=== PATIENT | female | born 1940 | race Caucasian/White ===

== ENCOUNTER 2017-01-23 19:26 | Inpatient (IN) | payer OTHER ==
--- NOTE | 2017-01-23 19:50 | CPEKG ---
Heart Rate: 59 RR Interval: 1017 P-R Interval: 168 QRSD Interval: 96 QT Interval: 464 QTC Interval: 460 P [place]: 66 QRS [place]: 34 T Wave [place]: 152 EKG Severity - ABNORMAL ECG - EKG Impression: SINUS RHYTHM EKG Impression: MULTIPLE VENTRICULAR PREMATURE COMPLEXES EKG Impression: REPOL ABNRM SUGGESTS ISCHEMIA, ANT-LAT LEADS Electronically Signed By: Vicente Chen 23-Jan-2017 22:41:07
[2017-01-23] MEDS ORDERED: ASPIRIN 81 MG CHEWABLE TAB PO ONE (20:05)
[2017-01-23] MEDS ORDERED: ASPIRIN 81 MG CHEWABLE TAB ONE (20:05)
--- NOTE | 2017-01-23 20:08 | EDPHY ---
H & P Stated Complaint: sent by PCP for elevated troponin and abnormal EKG, pt denies CP Time Seen by Provider: 01/23/17 19:46 HPI/ROS: CHIEF COMPLAINT: Exertional chest pain HISTORY OF PRESENT ILLNESS: The patient is referred to the ED for evaluation of an abnormal EKG, a reportedly elevated troponin and a history of intermittent chest pain for the past week. The patient reports her last episode of chest pain was 2-3 days ago. She reports she has had 2-3 episodes over the past week. It is typically precipitated by exertion and self-limited. The patient has no prior history of coronary artery disease. She reportedly did undergo an angiogram in 2001 for symptoms of fatigue which by her report was unremarkable. The patient denies active chest pain, asymmetric calf pain or swelling, pleuritic chest pain or additional complaints. The patient does have a family history significant for coronary artery disease. REVIEW OF SYSTEMS: A comprehensive 10 point review of systems is otherwise negative aside from elements mentioned in the history of present illness. Source: Patient Exam Limitations: No limitations - Personal History Current Tetanus/Diphtheria Vaccine: Yes Current Tetanus Diphtheria and Acellular Pertussis (TDAP): Yes Tetanus Vaccine Date: - Medical/Surgical History Hx Asthma: No Hx Chronic Respiratory Disease: No Hx Diabetes: No Hx Cardiac Disease: No Hx Renal Disease: No Hx Cirrhosis: No Hx Alcoholism: No Hx HIV/AIDS: No Hx Splenectomy or Spleen Trauma: No Other PMH: BREAST CA. COLON RESECTION. TONSILECTOMY - Social History Smoking Status: Former smoker - Physical Exam Exam: General Appearance: Alert, no distress Eyes: Pupils equal and round no pallor or injection ENT, Mouth: Mucous membranes moist Respiratory: There are no retractions, lungs are clear to auscultation Cardiovascular: Irregular rate consistent with her PVCs Gastrointestinal: Abdomen is soft and nontender, no masses, bowel sounds normal Neurological: A&O, normal motor function, normal sensory exam, normal cranial nerves Skin: Warm and dry, no rashes Musculoskeletal: Neck is supple nontender Extremities: symmetrical, full range of motion Constitutional: Initial Vital Signs Temperature (C) 36.8 C 01/23/17 19:30 Heart Rate 79 01/23/17 19:30 Respiratory Rate 16 01/23/17 19:30 Blood Pressure 129/79 H 01/23/17 19:30 O2 Sat (%) 93 01/23/17 19:30 O2 Delivery Mode Room Air Allergies/Adverse Reactions: No Known Allergies Allergy (Verified 02/21/15 16:03) Home Medications: Medication Instructions Recorded Herbals/Supplements -Info Only 1 ea PO DAILY 01/23/17 Medical Decision Making - Diagnostics EKG Interpretation: EKG: Complete interpretation has been separately recorded in the [facility] archive. Summary impression: Sinus rhythm, ST segment depression and T-wave inversions noted throughout the inferior and lateral leads Imaging Results: Imaging Impressions Chest X-Ray 01/23/17 20:05 Impression: Clear lungs. No acute process. ED Course/Re-evaluation: I reviewed the patient's outpatient laboratory studies including a troponin which was elevated at 0.114. The patient is noted to have some ST segment depression and T-wave inversions noted on her EKG. I have no prior EKG to compare to. The patient was given a 324 mg dose of aspirin. I did consult with Dr. Neo Arteaga who is on-call for Cardiology who will make arrangements for the patient to be seen tomorrow. The patient will be admitted to the hospitalist service for observation and serial enzymes this evening. Differential Diagnosis: Differential diagnosis considered includes acute coronary syndrome, myocardial infarction, pericarditis, pneumothorax - Data Points Laboratory Results: Laboratory Results 01/23/17 20:06 01/23/17 20:09 01/23/17 01/23/17 20:09 20:06 WBC 8.62 10^3/uL 10^3/uL (3.80-9.50) RBC 4.62 10^6/uL 10^6/uL (4.18-5.33) Hgb 14.8 g/dL g/dL (12.6-16.3) Hct 44.5 % % (38.0-47.0) MCV 96.3 fL fL (81.5-99.8) MCH 32.0 pg pg (27.9-34.1) MCHC 33.3 g/dL g/dL (32.4-36.7) RDW 12.9 % % (11.5-15.2) Plt Count 228 10^3/uL 10^3/uL (150-400) MPV 10.5 fL fL (8.7-11.7) Neut % (Auto) 37.8 % L % (39.3-74.2) Lymph % (Auto) 47.8 % H % (15.0-45.0) [place] % (Auto) 8.9 % % (4.5-13.0) Eos % (Auto) 4.6 % % (0.6-7.6) Baso % (Auto) 0.7 % % (0.3-1.7) Nucleat RBC Rel Count 0.0 % % (0.0-0.2) Absolute Neuts (auto) 3.25 10^3/uL 10^3/uL (1.70-6.50) Absolute Lymphs (auto) 4.12 10^3/uL H 10^3/uL (1.00-3.00) Absolute Monos (auto) 0.77 10^3/uL 10^3/uL (0.30-0.80) Absolute Eos (auto) 0.40 10^3/uL 10^3/uL (0.03-0.40) Absolute Basos (auto) 0.06 10^3/uL 10^3/uL (0.02-0.10) Absolute Nucleated RBC 0.00 10^3/uL 10^3/uL (0-0.01) Immature Gran % 0.2 % % (0.0-1.1) Immature Gran # 0.02 10^3/uL 10^3/uL (0.00-0.10) Sodium 141 mEq/L mEq/L (134-144) Potassium 3.8 mEq/L mEq/L (3.5-5.2) Chloride 107 mEq/L mEq/L (97-110) Carbon Dioxide 24 mEq/l mEq/l (22-31) Anion Gap 10 mEq/L mEq/L (8-16) BUN 21 mg/dL mg/dL (7-23) Creatinine 0.8 mg/dL mg/dL (0.6-1.0) Estimated GFR > 60 Glucose 126 mg/dL H mg/dL (70-100) Calcium 10.0 mg/dL mg/dL (8.5-10.4) Troponin I 0.114 ng/mL H ng/mL (0-0.034) Medications Given: Discontinued Medications Aspirin (Aspirin) 324 mg PO EDNOW ONE Stop: 01/23/17 20:06 Last Admin: 01/23/17 20:21 Dose: 324 mg Departure - Departure Disposition: [facility] Inpatient Acute Clinical Impression: Chest pain, Abnormal EKG, Cardiac enzymes elevated Condition: Good
[2017-01-23 20:10] LABS: % IMMATURE GRANULYOCYTES 0.2 % (0.0-1.1); ABSOLUTE IMMATURE GRANULOCYTES 0.02 10^3/uL (0.00-0.10); ADD DIFF? NO; ADD MORPH? NO; ADD SCAN? NO; ATYPICAL LYMPHOCYTE FLAG 0 (0-99); FRAGMENT RBC FLAG 0 (0-99); HEMATOCRIT 44.5 % (38.0-47.0); HEMOGLOBIN 14.8 g/dL (12.6-16.3); LEFT SHIFT FLG 0 (0-99); LIPEMIA HEMOLYSIS FLAG 80 (0-99); MEAN CELL HEMOGLOBIN CONCENTR. 33.3 g/dL (32.4-36.7); MEAN CELL VOLUME 96.3 fL (81.5-99.8); MEAN PLATELET VOLUME 10.5 fL (8.7-11.7); PLATELET CLUMPS FLAG 0 (0-99); PLATELET COUNT 228 10^3/uL (150-400); RED BLOOD CELL COUNT 4.62 10^6/uL (4.18-5.33); RED CELL DISTRIBUTION WIDTH 12.9 % (11.5-15.2)
[2017-01-23 20:22] LABS: ANION GAP 10 mEq/L (8-16); CARBON DIOXIDE 24 mEq/l (22-31); CHLORIDE 107 mEq/L (97-110); CREATININE 0.8 mg/dL (0.6-1.0); GLOMERULAR FILTRATION RATE > 60; GLUCOSE 126 mg/dL (70-100); POTASSIUM 3.8 mEq/L (3.5-5.2); SODIUM 141 mEq/L (134-144)
[2017-01-23 20:34] LABS: TROPONIN I 0.114 ng/mL (0-0.034)
[2017-01-23] MEDS ORDERED: ONDANSETRON DISINTEGRATING 4 MG TAB PO PRN (21:43)
[2017-01-23] MEDS ORDERED: ONDANSETRON 4 MG/2 ML VIAL IVP PRN (21:43)
[2017-01-23] MEDS ORDERED: ACETAMINOPHEN 325 MG TAB PO PRN (21:43)
--- NOTE | 2017-01-23 22:20 | GHP ---
[f rep st] HISTORY AND PHYSICAL DATE OF ADMISSION: 01/23/2017 CHIEF COMPLAINT: Chest pain. HISTORY OF PRESENT ILLNESS: This is a 76-year-old female, who over the last several weeks has been having intermittent chest pressure associated with activity and better with rest. This is not consi stent, however, and she has been doing some heavy exertion without any chest pressure. She has not had it for the last couple days. However, she felt this was not right and went to her primary care doctor. EKG was abnormal, and she was sent here. She currently is chest pain free. REVIEW OF SYSTEMS: A 10-point review of systems is obtained and they are negative. PAST MEDICAL HISTORY: 1. Breast cancer. 2. History of diverticulitis status post diverticulosis status post partial colectomy. MEDICATIONS: None. SOCIAL HISTORY: No smoking or alcohol. Raises [place] on a farm in [facility] is . FAMILY HISTORY: Mother did have bypass surgery in her 50s. PHYSICAL EXAM: VITAL SIGNS: Afebrile, blood pressure is 116/61, heart rate is 60, oxygen saturatio n 98% on room air. GENERAL: The patient is well developed, no apparent distress. HEENT: Nonicter ic sclerae. Extraocular movements intact. Moist mucous membranes. NECK: Supple. No thyromegaly. LUNGS: Good effort. Clear to auscultation bilaterally. CARDIOVASCULAR: Regular rate and rhythm . No murmurs, rubs, or gallops. ABDOMEN: Positive bowel sounds. Soft, nontender, nondistended. No hepatosplenomegaly. EXTREMITIES: No clubbing, cyanosis, or edema. SKIN: Without rash, dry, in tact. NEUROLOGIC: Alert and oriented x3. Moving all 4 extremities equally. PSYCH: Normal mood a nd affect. LABORATORY DATA: CBC, chemistry are normal. Troponin is 0.114. EKG, I personally reviewed and int erpreted, shows T-wave inversions anteriorly. ASSESSMENT: This is a 76-year-old female presenting with intermittent chest pressure and abnormal E KG and troponin. PLAN: 1. Probable unstable angina. Patient is chest pain free, and troponin is only mildly elevated. We will hold off on heparin at this time. We will continue aspirin. Cardiology has been consulted, a nd I suspect she might undergo angiogram tomorrow and will make her n.p.o. after midnight. We will also check a lipid panel in the morning. 2. Admission. Patient will be admitted under full admission status. Case discussed with the ER ph ysician. EKG and chest x-ray, I personally reviewed and interpreted. /[id number]/MODL
[2017-01-24 05:01] LABS: CHOLESTEROL 114 mg/dL (140-220); CHOLESTEROL/HDL RATIO 2.28 RATIO (1.00-4.44); HIGH DENSITY LIPOPROTEIN 50 mg/dL (40-85); LDL/HDL RATIO 0.72 RATIO (1.00-3.22); LOW DENSITY LIPOPROTEIN 36 mg/dL (80-100); NON-HIGH DENSITY LIPOPROTEIN 64 mg/dL (90-129); TRIGLYCERIDE 143 mg/dL (35-135); VERY LOW DENSITY LIPOPROTEINS 28 mg/dL (8-25)
[2017-01-24 05:13] LABS: TROPONIN I 0.108 ng/mL (0-0.034)
[2017-01-24] MEDS ORDERED: TEMAZEPAM 15 MG CAP PO PRN (08:34)
[2017-01-24] MEDS ORDERED: DIAZEPAM 5 MG TAB PO ONE (08:34)
[2017-01-24] MEDS ORDERED: diphenhydrAMINE 25 MG CAP PO ONE (08:34)
[2017-01-24] MEDS ORDERED: NITROGLYCERIN 0.4 MG BTL SL PRN (08:34)
[2017-01-24] MEDS ORDERED: ASPIRIN EC 325 MG TAB PO ONE (09:36)
[2017-01-24] MEDS ORDERED: LIDOCAINE 1% 300 MG/30 ML SDV ONE (10:33)
[2017-01-24] MEDS ORDERED: fentaNYL 100 MCG/2 ML INJ ONE (10:34)
[2017-01-24] MEDS ORDERED: MIDAZOLAM 2 MG/2 ML VIAL ONE (10:34)
[2017-01-24] MEDS ORDERED: IOPAMIDOL (ISOVUE-370) 150 ML BTL IV ONE (10:35)
[2017-01-24] MEDS ORDERED: HEPARIN 10,000 UNIT/10 ML MDV ONE (10:35)
[2017-01-24] MEDS ORDERED: VERAPAMIL 5 MG/2 ML VIAL ONE (10:35)
[2017-01-24] MEDS: ASPIRIN 325 MG TAB PO SCH (10:57)
[2017-01-24] MEDS ORDERED: NITROGLYCERIN 1,500 MCG/15 ML VIAL MISC ONE (11:50)
[2017-01-24] MEDS ORDERED: ATROPINE SULFATE 1 MG/10 ML SYR IVP PRN (12:05)
[2017-01-24] MEDS ORDERED: CLOPIDOGREL BISULFATE 75 MG TAB PO ONE (12:05)
[2017-01-24] MEDS ORDERED: CLOPIDOGREL BISULFATE 75 MG TAB ONE ×2 (12:05)
--- NOTE | 2017-01-24 12:10 | PDDXCAT ---
Diagnostic Cath Note - . Date: 01/24/17 Reverse Engineer: Jasper Indication: CCC Class III and IV angina on medical treatment - Procedure Access: left wrist Procedure: left heart catheterization, coronary angiography, left ventriculogram - Materials Left Heart Cath size: 5F Left Heart Cath materials: JL3.5, JR4.0, pigtail - Findings-Left Heart Catheterization LM: Unobstructed LAD: Subtotal proximally LCX: Unobstructed RCA: Unobstructed EDP: 12 mm of mercury LVEF: 65 percent Wall motion: Normal Complications: None Estimated blood loss: <50ml Closure method: TR Band Assessment: Acute coronary syndrome with subtotal occlusion of the LAD proximally. Preserved LV systolic function with normal filling pressures. Plan: Urgent PCI of the LAD. Intervention: Procedure performed: PCI and stenting of the LAD. After reviewing diagnostic angiograms like to proceed with urgent PCI. Patient was anticoagulated with heparin. Therapeutic ACT was confirmed. Using a 5 [place] JL3.5 guiding catheter left main coronary selectively intubated. Guiding shots were performed. Using a 0.014 luge wire the LAD stenosis was crossed. Lesion was pre-dilated with a 3 mm x 16 balloon x2. A 3.0 x 20 mm synergy stent was placed across the lesion and deployed using a single inflation. Repeat angiograms revealed JAN grade 3 flow. Wire was withdrawn. Final orthogonal angiograms were obtained. Conclusion: Successful PCI and stenting of the proximal LAD in the setting of acute coronary syndrome. Patient Problems: Problems Problem Status Onset Chest pain Acute Abnormal EKG Acute Cardiac enzymes elevated Acute
--- NOTE | 2017-01-24 12:34 | CPEKG ---
Heart Rate: 47 RR Interval: 1277 P-R Interval: 188 QRSD Interval: 98 QT Interval: 496 QTC Interval: 439 P [place]: 49 QRS [place]: 9 T Wave [place]: 143 EKG Severity - ABNORMAL ECG - EKG Impression: SINUS BRADYCARDIA EKG Impression: ABNRM R PROG, CONSIDER ASMI OR LEAD PLACEMENT EKG Impression: ABNORMAL T, CONSIDER ISCHEMIA, LATERAL LEADS Electronically Signed By: Feliz Hernandez 24-Jan-2017 12:55:35
[2017-01-24 15:31] VITALS: RESP 16
--- NOTE | 2017-01-24 15:32 | HOSPPROG ---
Hospitalist Progress Note Assessment/Plan: # ACS - subtotal occlusion of LAD proximally on cath - TROP 0.108 this am prior to cath - s/p stenting TELE (personally reviewed and interpreted) sinus rhythm - oxygen saturations 93% on room air - continue aspirin, Plavix, CHON-inhibitor, statin - cardiology following - anticipate discharge in the morning if remains stable # diet - cardiac # dispo - > 2 MN as requiring cardiac catheterization today and monitoring overnight post stenting I have discussed case with cardiology will monitor patient on telemetry overnight Subjective: No chest pain currently Objective: Vital Signs Temp Pulse Resp BP Pulse Ox 36.6 C 48 L 20 137/80 H 98 01/24/17 13:50 01/24/17 13:50 01/24/17 13:50 01/24/17 13:50 01/24/17 13:50 01/23/17 01/24/17 01/25/17 05:59 05:59 05:59 Intake Total 300 Balance 300 - Physical Exam Constitutional: appears nourished Eyes: anicteric sclera Ears, Nose, Mouth, Throat: moist mucous membranes Cardiovascular: regular rate and rhythym Respiratory: no respiratory distress, no rales or rhonchi Gastrointestinal: normoactive bowel sounds Genitourinary: no bladder fullness Skin: warm Musculoskeletal: No asymmetric calves Neurologic: AAOx3 Psychiatric: interacting appropriately, not anxious Lymph, Heme, Immunologic: no cervical LAD ICD10 Worksheet Patient Problems: Problems Problem Status Onset Abnormal EKG Acute Cardiac enzymes elevated Acute Chest pain Acute
[2017-01-24] MEDS: ATORVASTATIN CALCIUM 20 MG TAB PO SCH (16:47)
[2017-01-24] MEDS: LISINOPRIL 2.5 MG TAB PO SCH (16:47)
[2017-01-25 04:02] VITALS: O2SAT 94
[2017-01-25 04:36] LABS: % IMMATURE GRANULYOCYTES 0.2 % (0.0-1.1); ABSOLUTE IMMATURE GRANULOCYTES 0.02 10^3/uL (0.00-0.10); ADD DIFF? NO; ADD MORPH? NO; ADD SCAN? NO; ATYPICAL LYMPHOCYTE FLAG 10 (0-99); FRAGMENT RBC FLAG 0 (0-99); HEMATOCRIT 42.8 % (38.0-47.0); HEMOGLOBIN 14.3 g/dL (12.6-16.3); LEFT SHIFT FLG 0 (0-99); LIPEMIA HEMOLYSIS FLAG 80 (0-99); MEAN CELL HEMOGLOBIN 32.6 pg (27.9-34.1); MEAN CELL HEMOGLOBIN CONCENTR. 33.4 g/dL (32.4-36.7); MEAN CELL VOLUME 97.5 fL (81.5-99.8); MEAN PLATELET VOLUME 10.6 fL (8.7-11.7); PLATELET CLUMPS FLAG 0 (0-99); PLATELET COUNT 210 10^3/uL (150-400); RED BLOOD CELL COUNT 4.39 10^6/uL (4.18-5.33); RED CELL DISTRIBUTION WIDTH 12.9 % (11.5-15.2)
[2017-01-25 04:47] LABS: ALBUMIN 3.4 g/dL (3.5-5.0); ANION GAP 6 mEq/L (8-16); ASPARTATE AMINOTRANSFERASE 42 IU/L (14-46); BILIRUBIN,TOTAL 0.8 mg/dL (0.1-1.4); CALCIUM 9.5 mg/dL (8.5-10.4); CARBON DIOXIDE 25 mEq/l (22-31); CHLORIDE 110 mEq/L (97-110); CREATININE 0.7 mg/dL (0.6-1.0); GLOMERULAR FILTRATION RATE > 60; GLUCOSE 98 mg/dL (70-100); LACTATE DEHYDROGENASE 480 IU/L (313-618); MAGNESIUM 2.2 mg/dL (1.6-2.3); POTASSIUM 4.4 mEq/L (3.5-5.2); SODIUM 141 mEq/L (134-144)
[2017-01-25 07:57] VITALS: BP 124/71; PULSE 53; TEMP 97.9
[2017-01-25] MEDS: ASPIRIN 325 MG TAB PO SCH (08:15)
[2017-01-25] MEDS: ATORVASTATIN CALCIUM 20 MG TAB PO SCH (08:15)
[2017-01-25] MEDS: LISINOPRIL 2.5 MG TAB PO SCH (08:15)
[2017-01-25] MEDS ORDERED: CLOPIDOGREL BISULFATE 75 MG TAB PO SCH (09:00)
[2017-01-25] MEDS ORDERED: NITROGLYCERIN 0.4 MG BTL SL PRN (09:35)
--- NOTE | 2017-01-25 09:51 | PDCARPN ---
Cardiology Progress Note Chief Complaint: Patient reports she has no pain, would like to go home. Assessment/Plan: Assessment: 76-year-old female history diverticulosis, GERD and breast cancer, admitted on January 23 complaint intermittent chest pressure associated with activity. Cardiac catheterization done yesterday showing subtotal proximal LAD normal LV wall motion with EF estimated at 65%. Noted to have mild elevated troponin at 0.[address] Hutchinson proceeded urgent PCI of LAD, with a 3 0 x 20 mm synergy DL implantation. Patient ultimately transferred to PCU, patient reporting no chest pain or pressure throughout the evening. Blood pressure has been stable. Patient heart rate has been averaging in the mid 50s. Sinus rhythm on the monitor with occasional PAC. No malignant arrhythmias or pauses noted. 12 lead electrocardiogram pending. Catheter insertion site, left wrist, mild ecchymosis, but no bleeding, hematoma, or signs of infection. CMS checks within normal limits to left hand. PLAN: 1. Chest pain/ACS: Subtotaled LAD open PCI and DL implantation. No further chest pain. Patient started on anti-platelet therapy of aspirin 325 mg p.o. q.day, clopidogrel 75 mg p.o. q.day and lisinopril. Will hold off of beta- chantel due to bradycardia with heart rates averaging 50s. Patient does not have hyperlipidemia, her LDL was 36 yesterday morning. She has been started on atorvastatin post ACS. We will need to repeat a fasting lipid and liver panel in 6-8 weeks. Patient to be potentially discharged today. Have discussed with Dr. Bartholomew, have discussed post PCI care with the patient, including monitoring for signs of infection, importance of medication compliance, and activity restrictions. Will plan for patient to be seen early next week in office, an to be scheduled for cardiac rehab. 01/25/17 09:49 Subjective: Patient denies of any chest pain, shortness of breath, palpitations, lightheadedness, near-syncope, or syncopal events. Reviewed/Discussed With: hospitalist (Dr Bartholomew), other (Dr Mcdonald) Objective: Vital Signs (8 Hrs) Temp Pulse Resp BP Pulse Ox 01/25/17 07:57 36.6 C 53 L 16 124/71 H 94 01/25/17 04:00 36.6 C 5 L 16 131/61 H 94 Intake/Output (24 Hrs) 01/24/17 01/25/17 01/26/17 05:59 05:59 05:59 Intake Total 300 2515 Balance 300 2515 Intake: Oral (ml) 300 1515 IV Intake (ml) 1000 Other: Weight 82.2 kg Number of Voids Toilet 2 2 Result Diagrams: 01/25/17 03:31 01/25/17 03:31 Cardiac Labs: Cardiac Lab Results (72 Hrs) 01/24/17 03:28 Troponin I 0.108 H - Physical Exam Constitutional: WDWN, healthy appearing Ears, Nose, Mouth, Throat: moist mucous membranes Cardiovascular: regular rate and rhythm, no murmurs, no rubs, no gallops, other (+2 radial pulses bilateral, +2 post tibial pulses bilateral), No systolic murmur, No jugular vein distention, No carotid bruit Peripheral Pulses: 2+: carotid (R), carotid (L), dorsalis-pedis (R), dorsalis- pedis (L) Respiratory: clear to auscultate bilat, no crackles, no wheezes Gastrointestinal: normoactive bowel sounds Skin: no rashes, warm, no edema, other (Catheter insertion site, left wrist, mild ecchymosis, no hematoma, redness, swelling, drainage. CMS checks within normal limits to left hand) Neurologic: AAOx3 Psychiatric: cooperative, interactive, following commands ICD10 Worksheet Patient Problems: Problems Problem Status Onset Chest pain Acute Abnormal EKG Acute Cardiac enzymes elevated Acute
--- NOTE | 2017-01-25 09:51 | CPEKG ---
Heart Rate: 53 RR Interval: 1132 P-R Interval: 168 QRSD Interval: 96 QT Interval: 440 QTC Interval: 414 P [place]: 70 QRS [place]: 56 T Wave [place]: 133 EKG Severity - ABNORMAL ECG - EKG Impression: SINUS RHYTHM EKG Impression: ? ONE JUNCTIONAL BEAT EKG Impression: CONSIDER ANTERIOR INFARCT EKG Impression: ABNORMAL T, CONSIDER ISCHEMIA, LATERAL LEADS Electronically Signed By: Feliz Hernandez 25-Jan-2017 12:34:55
--- NOTE | 2017-01-25 15:05 | GDS ---
[f rep st] DISCHARGE SUMMARY DISCHARGE DIAGNOSES: Include: 1. Acute coronary syndrome. 2. Subtotal occlusion of the left anterior descending artery, status post stenting. HISTORY OF PRESENT ILLNESS: This is a 76-year-old female who presents with exertional chest pain. For details of the patient's initial presentation, please see the history and physical dated 017. CONSULTATIONS: Include Cardiology. PROCEDURES: On 01/24/2017, patient underwent cardiac catheterization with LAD stenting. HOSPITAL COURSE: Acute coronary syndrome: Patient presented with chest pain with a troponin of 0.1 14. The patient had precordial ST depressions and T-wave inversions, was taken to the cardiac cardiac cath lab technologist and was found to have subtotal occlusion of her LAD, underwent successful stenting. The patient was monitored overnight without any cardiac dysrhythmia. She is hemodynamically stable on the day of disposition. She is being discharged on aspirin, Plavix, statin, low-dose Zestril, and sublingua l nitroglycerin. The patient will follow in [facility] in 1 week's time prior to traveling. PENDING STUDIES: At the time of this dictation are none. DISCHARGE MEDICATIONS: Please reference the med rec printed on 01/25/2017. FOLLOWUP: Include with [facility] in the next 7-10 days. I spent greater than 30 minutes in the planning and coordination of this discharge. /[id number]/MODL
== END 2017-01-25 11:56 | disposition home or self-care (01) | DRG 247 ==
LOC: OBSVTOIN 21:43 → F2W 21:45
PROVIDERS: ADMIT Internal Medicine; ATTEND Internal Medicine
PROC: 027034Z Dilation of Coronary Artery, One Artery with Drug-eluting Intraluminal Device, Percutaneous Approach (ICD-10-PCS; principal; 2017-01-24)
PROC: B2151ZZ Fluoroscopy of Left Heart using Low Osmolar Contrast (ICD-10-PCS; principal; 2017-01-24)
PROC: B2111ZZ Fluoroscopy of Multiple Coronary Arteries using Low Osmolar Contrast (ICD-10-PCS; principal; 2017-01-24)
PROC: 4A023N7 Measurement of Cardiac Sampling and Pressure, Left Heart, Percutaneous Approach (ICD-10-PCS; principal; 2017-01-24)
DX: I25.10 Atherosclerotic heart disease of native coronary artery without angina pectoris (principal); I24.9 Acute ischemic heart disease, unspecified; Z85.3 Personal history of malignant neoplasm of breast; Z87.891 Personal history of nicotine dependence
CPT/HCPCS: C1725; C1769; C1874; C1887; C9600; J1644; J2250; J3010; Q9967

== ENCOUNTER → 2017-10-09 | Outpatient (CLI) | payer OTHER | LOC: FIMAGING 12:10 | PROVIDERS: ATTEND Internal Medicine | DX: Z12.31 Encounter for screening mammogram for malignant neoplasm of breast (principal); Z85.3 Personal history of malignant neoplasm of breast ==

== ENCOUNTER 2018-01-31 11:38 | Emergency (ER) | payer OTHER ==
--- NOTE | 2018-01-31 11:49 | CPEKG ---
Heart Rate: 52 RR Interval: 1154 P-R Interval: 172 QRSD Interval: 96 QT Interval: 428 QTC Interval: 398 P [place]: 71 QRS [place]: 89 T Wave [place]: -5 EKG Severity - BORDERLINE ECG - EKG Impression: SINUS RHYTHM EKG Impression: BORDERLINE RIGHT AXIS DEVIATION EKG Impression: BORDERLINE T ABNORMALITIES, INFERIOR LEADS Electronically Signed By: Nona Phillips 31-Jan-2018 14:54:13
--- NOTE | 2018-01-31 12:03 | EDPHY ---
H & P Stated Complaint: DIZZY SINCE 043/HX CARDIAC STENTS/STOPPED PLAVIX 3 WKS AGO Time Seen by Provider: 01/31/18 11:44 HPI/ROS: CHIEF COMPLAINT: Dizziness HISTORY OF PRESENT ILLNESS: 77-year-old female with coronary artery disease, status post cardiac stenting presents with dizziness. Onset of dizziness this morning, 1st noticed when she got out of bed and went to the bathroom. She needed to hold onto the counter to stabilize herself. She went back to bed and when she awoke she felt okay, but then developed recurrent dizziness while she was bending over while gardening. Stop taking Plavix a few days ago. No associated symptoms. No room spinning sensation, chest pain or shortness of breath. No recent illness. No prior similar symptoms. REVIEW OF SYSTEMS: complete 10 point ROS negative except at noted in the HPI - Personal History Current Tetanus Diphtheria and Acellular Pertussis (TDAP): Yes Tetanus Vaccine Date: - Medical/Surgical History Hx Asthma: No Hx Chronic Respiratory Disease: No Hx Diabetes: No Hx Cardiac Disease: Yes Hx Renal Disease: No Hx Cirrhosis: No Hx Alcoholism: No Hx HIV/AIDS: No Hx Splenectomy or Spleen Trauma: No Other PMH: BREAST CA. COLON RESECTION. TONSILECTOMY. Lysis of adhesisions 1984, skin cancer, pna 2005, diverticulosis. CARDIAC STENT - Social History Smoking Status: Former smoker Additional Social History: - Physical Exam Exam: General Appearance: Alert, pleasant Eyes: Pupils equal and round, no conjunctival pallor or injection, no nystagmus ENT, Mouth: Mucous membranes moist Neck: Normal inspection Respiratory: Lungs are clear to auscultation Cardiovascular: Regular rate and rhythm Gastrointestinal: Abdomen is soft and nontender Neurological: Alert, oriented x3, cranial nerves II through XII intact, motor 5 /5, sensory intact to light touch Skin: Warm and dry Extremities: Normal inspection Psychiatric: Mood and affect normal Constitutional: Initial Vital Signs Temperature (C) 36.7 C 01/31/18 11:40 Heart Rate 74 01/31/18 11:40 Respiratory Rate 18 01/31/18 11:40 Blood Pressure 129/72 H 01/31/18 11:40 O2 Sat (%) 94 01/31/18 11:40 O2 Delivery Mode Room Air Allergies/Adverse Reactions: No Known Allergies Allergy (Verified 01/31/18 11:39) Home Medications: Medication Instructions Recorded Herbals/Supplements -Info Only 1 ea PO DAILY 01/23/17 Aspirin [Aspirin 325 mg (*)] 325 mg PO DAILY #30 tab 01/25/17 Atorvastatin Calcium [Lipitor 20 20 mg PO DAILY #30 tab 01/25/17 mg (*)] Nitroglycerin [Nitrostat 0.4 mg 0.4 mg SL Q5M PRN #30 btl 01/25/17 (*)] Losartan Potassium 01/31/18 Medical Decision Making - Diagnostics EKG Interpretation: EKG interpreted by me reveals sinus rhythm, rate 52, diffuse nonspecific T-wave changes. Interpretation: Borderline EKG ED Course/Re-evaluation: This patient presents after an episode of dizziness. She ambulated throughout the emergency department and was asymptomatic. Stat EKG reveals no evidence of ischemia or dysrhythmia. Laboratory tests are unremarkable. I feel that she is safe and stable for discharge home. There is no evidence of serious etiology for symptoms such as acute coronary syndrome, dysrhythmia or CVA. Differential Diagnosis: Dizziness including but not limited to peripheral and central causes of vertigo , orthostatic causes including dehydration, and blood loss. - Data Points Laboratory Results: Laboratory Results 01/31/18 11:55 01/31/18 11:55 01/31/18 01/31/18 01/31/18 12:03 11:55 11:55 WBC 9.08 10^3/uL 10^3/uL (3.80-9.50) RBC 4.42 10^6/uL 10^6/uL (4.18-5.33) Hgb 14.3 g/dL g/dL (12.6-16.3) Hct 41.8 % % (38.0-47.0) MCV 94.6 fL fL (81.5-99.8) MCH 32.4 pg pg (27.9-34.1) MCHC 34.2 g/dL g/dL (32.4-36.7) RDW 12.5 % % (11.5-15.2) Plt Count 244 10^3/uL 10^3/uL (150-400) MPV 9.8 fL fL (8.7-11.7) Neut % (Auto) 37.2 % L % (39.3-74.2) Lymph % (Auto) 46.6 % H % (15.0-45.0) [place] % (Auto) 8.8 % % (4.5-13.0) Eos % (Auto) 6.6 % % (0.6-7.6) Baso % (Auto) 0.6 % % (0.3-1.7) Nucleat RBC Rel Count 0.0 % % (0.0-0.2) Absolute Neuts (auto) 3.38 10^3/uL 10^3/uL (1.70-6.50) Absolute Lymphs (auto) 4.23 10^3/uL H 10^3/uL (1.00-3.00) Absolute Monos (auto) 0.80 10^3/uL 10^3/uL (0.30-0.80) Absolute Eos (auto) 0.60 10^3/uL H 10^3/uL (0.03-0.40) Absolute Basos (auto) 0.05 10^3/uL 10^3/uL (0.02-0.10) Absolute Nucleated RBC 0.00 10^3/uL 10^3/uL (0-0.01) Immature Gran % 0.2 % % (0.0-1.1) Immature Gran # 0.02 10^3/uL 10^3/uL (0.00-0.10) Sodium 143 mEq/L mEq/L (135-145) Potassium 4.5 mEq/L mEq/L (3.3-5.0) Chloride 107 mEq/L mEq/L (97-110) Carbon Dioxide 23 mEq/l mEq/l (22-31) Anion Gap 13 mEq/L mEq/L (8-16) BUN 16 mg/dL mg/dL (7-23) Creatinine 0.7 mg/dL mg/dL (0.6-1.0) Estimated GFR > 60 Glucose 109 mg/dL H mg/dL (70-100) Calcium 9.8 mg/dL mg/dL (8.5-10.4) POC Troponin I 0.01 ng/mL ng/mL (0.00-0.08) Point of Care Test Results: Chemistry 01/31/18 12:03 POC Troponin I 0.01 ng/mL ng/mL (0.00-0.08) Departure - Departure Disposition: Home, Routine, Self-Care Clinical Impression: Dizziness Condition: Good Instructions: Dizziness (ED) Additional Instructions: Drink plenty of fluids. Return with worsening symptoms or any concerns. Referrals: Camille London MD [Primary Care Provider] - As per Instructions
[2018-01-31 12:12] LABS: PLATELET COUNT 244 10^3/uL (150-400)
[2018-01-31 12:49] VITALS: BP 108/67
== END 2018-01-31 12:48 | disposition home or self-care (01) ==
DX: R42 Dizziness and giddiness (principal); Z79.82 Long term (current) use of aspirin; Z85.3 Personal history of malignant neoplasm of breast; Z85.828 Personal history of other malignant neoplasm of skin; Z87.891 Personal history of nicotine dependence
CPT/HCPCS: 84484-PO

== ENCOUNTER → 2018-11-27 | Outpatient (CLI) | payer OTHER | LOC: FIMAGING 09:39 | PROVIDERS: ATTEND Internal Medicine | DX: Z80.1 Family history of malignant neoplasm of trachea, bronchus and lung (principal); Z87.891 Personal history of nicotine dependence; Z85.3 Personal history of malignant neoplasm of breast ==